=== PATIENT | female | born 1940 | race Two or more races ===

== ENCOUNTER 2018-09-27 20:20 | Inpatient (IN) | payer MEDICARE, MEDICAID ==
[~2018-09-27] VITALS: Ht 160 cm; Wt 59.0 kg
[2018-09-27] MEDS ORDERED: FAMOTIDINE20 MG ORAL (20:23)
[2018-09-27] MEDS ORDERED: KEPPRA LIQ100 MG/1 M ORAL (20:23)
[2018-09-27] MEDS ORDERED: DULCOLAX10 MG RC (20:23)
[2018-09-27] MEDS ORDERED: MULTIVITAMINS1 EA14 PO (20:23)
[2018-09-27] MEDS ORDERED: MILK OF MA400 MG/51 ORAL (20:23)
[2018-09-27] MEDS ORDERED: POTASSIUM20 MEQ/15 GT (20:23)
[2018-09-27 20:27] VITALS: BP 129/80
--- NOTE | 2018-09-27 21:19 | Emergency Room Report ---
History of Present Illness General Chief Complaint: Malfunctioning Gastric Tube Source: Patient, EMS, PMD Present Illness HPI Patient comes in with allegedly leaking gastrostomy tube. She states she wants this removed as she's taking in adequate calories by mouth. She denies any chest pain nausea vomiting diarrhea dysuria rashes weakness dizziness depression. According to Dr. Holloway she is confused and not an accurate historian. He states that she suffers from dysphagia and is unable to swallow. She needs to have L mentation by the gastrostomy tube or else she gets dehydrated. Also she cannot swallow pills. Allergies: Coded Allergies: LATEX (Verified Allergy, Unknown, 09/27/18) PENICILLINS (Verified Allergy, Unknown, 09/27/18) Patient History Past Medical History: see triage record Social History: Denies: smoking, alcohol use, drug use Social History Narrative SNF Last Menstrual Period: n/a Reviewed Nursing Documentation: PMH: Agreed; PSxH: Agreed Nursing Documentation-PMH Hx Gastrointestinal Problems: Yes - dysphagia Physical Exam Vital Signs Date Time Temp Pulse Resp B/P (MAP) Pulse Ox O2 Delivery O2 Flow Rate FiO2 09/27/18 20:16 98.1 77 20 123/85 93 09/27/18 20:27 Room Air Sp02 EP Interpretation: reviewed, normal General Appearance: no apparent distress, alert, GCS 15, Chronically Ill Head: normocephalic, atraumatic Eyes: bilateral eye normal inspection, bilateral eye PERRL ENT: hearing grossly normal, normal voice, moist mucus membranes Neck: full range of motion, supple Respiratory: no respiratory distress, speaking full sentences Gastrointestinal: soft, other - gastrostomy tube with tape Genitourinary: no CVA tenderness Neurologic: alert, oriented - X2 Psychiatric: mood/affect normal Skin: no rash Medical Decision Making Diagnostic Impression: Primary Impression: Malfunction of percutaneous endoscopic gastrostomy (PEG) tube Additional Impressions: Dehydration Dysphagia Qualified Codes: R13.10 - Dysphagia, unspecified ER Course Patient with a leaking gastrostomy tube. Initially we were considering changing this out. In assessing the tubes it appears to be a PEG tube instead of a gastrostomy tube that can't be replaced by deflating balloon. Will need GI to perform. The patient clinically is stable. This needs to be performed by his leather flesher and via endoscopy. In addition the patient is requesting that the tube be removed completely and states that she feels it's not necessary at this time. According to PMD, patient with confabulation and dysphagia - unable to swallow on own - anything. After discussion with her doctor plan is to admit the patient to the hospital to have this PEG tube replaced. In the interim she needs to have IV hydration. Evaluation will be with EKG, chest x-ray, abdominal film and labs. EKG without injury. Labs with normal CBC. CMP - elevated BUN compared to creat. Admit med Dr. Griffiths. Laboratory Tests Test 09/27/18 22:00 White Blood Count 6.6 K/UL (4.8-10.8) Red Blood Count 4.20 M/UL (4.20-5.40) Hemoglobin 12.8 G/DL (12.0-16.0) Hematocrit 38.6 % (37.0-47.0) Mean Corpuscular Volume 92 FL (80-99) Mean Corpuscular Hemoglobin 30.5 PG (27.0-31.0) Mean Corpuscular Hemoglobin Concent 33.2 G/DL (32.0-36.0) Red Cell Distribution Width 12.4 % (11.6-14.8) Platelet Count 285 K/UL (150-450) Mean Platelet Volume 7.0 FL (6.5-10.1) Neutrophils (%) (Auto) 60.7 % (45.0-75.0) Lymphocytes (%) (Auto) 19.4 % (20.0-45.0) L Monocytes (%) (Auto) 11.9 % (1.0-10.0) H Eosinophils (%) (Auto) 5.7 % (0.0-3.0) H Basophils (%) (Auto) 2.3 % (0.0-2.0) H Prothrombin Time 10.2 SEC (9.30-11.50) Prothrombin Time INR 1.0 (0.9-1.1) PTT 25 SEC (23-33) Urine Color Pale yellow Urine Appearance Clear Urine pH 8 (4.5-8.0) Urine Specific [place] 1.010 (1.005-1.035) Urine Protein Negative (NEGATIVE) Urine Glucose (UA) Negative (NEGATIVE) Urine Ketones Negative (NEGATIVE) Urine Blood Negative (NEGATIVE) Urine Nitrite Positive (NEGATIVE) H Urine Bilirubin Negative (NEGATIVE) Urine Urobilinogen Normal MG/DL (0.0-1.0) Urine Leukocyte Esterase Negative (NEGATIVE) Urine RBC 0 /HPF (0 - 2) Urine WBC 0-2 /HPF (0 - 2) Urine Squamous Epithelial Cells Few /LPF (NONE/OCC) Urine Bacteria Occasional /HPF (NONE) Sodium Level 139 MMOL/L (136-145) Potassium Level 4.6 MMOL/L (3.5-5.1) Chloride Level 105 MMOL/L (98-107) Carbon Dioxide Level 27 MMOL/L (21-32) Anion Gap 7 mmol/L (5-15) Blood Urea Nitrogen 18 mg/dL (7-18) Creatinine 0.5 MG/DL (0.55-1.30) L Estimate Glomerular Filtration Rate mL/min (>60) Glucose Level 92 MG/DL (74-106) Calcium Level 9.1 MG/DL (8.5-10.1) Total Bilirubin 0.2 MG/DL (0.2-1.0) Aspartate Amino Transferase (AST) 21 U/L (15-37) Alanine Aminotransferase (ALT) 24 U/L (12-78) Alkaline Phosphatase 86 U/L (46-116) Troponin I 0.000 ng/mL (0.000-0.056) Total Protein 8.5 G/DL (6.4-8.2) H Albumin 3.6 G/DL (3.4-5.0) Globulin 4.9 g/dL Albumin/Globulin Ratio 0.7 (1.0-2.7) L Lipase 94 U/L (73-393) EKG Diagnostic Results Rate: normal Rhythm: NSR ST Segments: no acute changes Rhythm Strip Diag. Results EP Interpretation: yes Rhythm: NSR, no PVC's, no ectopy Chest X-Ray Diagnostic Results Chest X-Ray Diagnostic Results : Chest X-Ray Ordered: Yes # of Views/Limited/Complete: 1 View Indication: Other EP Interpretation: Yes Interpretation: no consolidation, no effusion, no pneumothorax Impression: No acute disease Electronically Signed by: Lele Peres MD Other X-Ray Diagnostic Results Other X-Ray Diagnostic Results : X-Ray ordered: abd # of Views/Limited Vs Complete: 1 View Indication: Other EP Interpretation: Yes Interpretation: nonspecific bowel gas, no sbo, other - G tube Impression: Other Electronically Signed by: Lele Peres MD Last Vital Signs Date Time Temp Pulse Resp B/P (MAP) Pulse Ox O2 Delivery O2 Flow Rate FiO2 09/28/18 00:00 97.3 73 18 130/79 (96) 94 09/27/18 23:59 Room Air Status: improved Disposition: ADMITTED INPATIENT Condition: Serious Lele Peres MD Sep 27, 2018 21:19
[2018-09-27] MEDS ORDERED: Sodium Chloride 500ML 550 ML IV SCH (21:45)
[2018-09-27 22:23] LABS: BASOPHILS % (AUTO) 2.3 % (0.0-2.0); EOSINOPHILS % (AUTO) 5.7 % (0.0-3.0); HEMATOCRIT 38.6 % (37.0-47.0); HEMOGLOBIN 12.8 G/DL (12.0-16.0); LYMPHOCYTES % (AUTO) 19.4 % (20.0-45.0); MEAN CORPUSCULAR VOLUME 92 FL (80-99); MONOCYTES % (AUTO) 11.9 % (1.0-10.0); NEUTROPHILS % (AUTO) 60.7 % (45.0-75.0); PLATELET COUNT 285 K/UL (150-450); RED CELL DISTRIBUTION WIDTH 12.4 % (11.6-14.8); WHITE BLOOD COUNT 6.6 K/UL (4.8-10.8)
[2018-09-27 22:32] LABS: ANION GAP 7 mmol/L (5-15); BLOOD UREA NITROGEN 18 mg/dL (7-18); CALCIUM 9.1 MG/DL (8.5-10.1); CARBON DIOXIDE 27 MMOL/L (21-32); CHLORIDE 105 MMOL/L (98-107); CREATININE 0.5 MG/DL (0.55-1.30); POTASSIUM 4.6 MMOL/L (3.5-5.1); SODIUM 139 MMOL/L (136-145)
[2018-09-27 22:35] LABS: APPEARANCE,URINE CLEAR; BILIRUBIN, URINE NEGATIVE (NEGATIVE); COLOR,URINE PALE YELLOW; GLUCOSE, URINE (UA) NEGATIVE (NEGATIVE); KETONES,URINE NEGATIVE (NEGATIVE); LEUKOCYTE ESTERASE ,URINE NEGATIVE (NEGATIVE); NITRITE,URINE POSITIVE (NEGATIVE); PH,URINE 8 (4.5-8.0); PROTEIN,URINE NEGATIVE (NEGATIVE); UROBILINOGEN,URINE NORMAL MG/DL (0.0-1.0)
[2018-09-27 22:36] LABS: ALANINE AMINOTRANSFERASE 24 U/L (12-78); ALBUMIN 3.6 G/DL (3.4-5.0); ALBUMIN/GLOBULIN RATIO 0.7 (1.0-2.7); ALKALINE PHOSPHATASE 86 U/L (46-116); ASPARTATE AMINO TRANSFERASE 21 U/L (15-37); BILIRUBIN,TOTAL 0.2 MG/DL (0.2-1.0)
[2018-09-27 23:10] VITALS: BP 124/77
[2018-09-27] MEDS ORDERED: SODIUM CHLORIDE IV SCH (23:14)
[2018-09-28] VITALS: BP 130/79
[2018-09-28] MEDS ORDERED: D5 1/2NS w/KCl 20mEq 1,000 ML IV SCH (00:15)
[2018-09-28 04:00] VITALS: BP 114/72
[2018-09-28 06:34] LABS: BASOPHILS % (AUTO) 1.8 % (0.0-2.0); EOSINOPHILS % (AUTO) 5.8 % (0.0-3.0); HEMATOCRIT 36.2 % (37.0-47.0); HEMOGLOBIN 12.3 G/DL (12.0-16.0); LYMPHOCYTES % (AUTO) 16.8 % (20.0-45.0); MEAN CORPUSCULAR VOLUME 91 FL (80-99); MONOCYTES % (AUTO) 9.7 % (1.0-10.0); NEUTROPHILS % (AUTO) 65.9 % (45.0-75.0); PLATELET COUNT 277 K/UL (150-450); RED BLOOD COUNT 3.97 M/UL (4.20-5.40); RED CELL DISTRIBUTION WIDTH 12.1 % (11.6-14.8); WHITE BLOOD COUNT 5.8 K/UL (4.8-10.8)
[2018-09-28 06:55] LABS: ANION GAP 6 mmol/L (5-15); BLOOD UREA NITROGEN 12 mg/dL (7-18); CALCIUM 8.7 MG/DL (8.5-10.1); CARBON DIOXIDE 26 MMOL/L (21-32); CHLORIDE 107 MMOL/L (98-107); CREATININE 0.4 MG/DL (0.55-1.30); POTASSIUM 4.1 MMOL/L (3.5-5.1); SODIUM 139 MMOL/L (136-145)
[2018-09-28 08:00] VITALS: BP 119/80
[2018-09-28] MEDS ORDERED: levETIRAcetam 1,000mg/NS100ml 100 ML IVPB SCH (09:00)
[2018-09-28] MEDS: Heparin 5000 units/ml inj SUBQ SCH ×2 (09:00→21:02)
--- NOTE | 2018-09-28 10:46 | Diagnostic Imaging Report ---
Indication: Abdominal pain Comparison: None Single view of the abdomen obtained Findings: Bowel gas pattern is nonspecific. No mass, ectopic calcifications, or abnormal gas collections are identified. The bones are unremarkable. Catheter tubing projected over the mid abdomen appears to be a gastrostomy. Impression: No acute findings
--- NOTE | 2018-09-28 10:46 | Diagnostic Imaging Report ---
Indication: Chest pain Comparison: None A single view chest radiograph was obtained. Findings: No definite infiltrate or pulmonary vascular congestion identified. The heart is enlarged. The aorta is mildly enlarged consistent with atherosclerotic vascular disease. The bones are osteopenic. Impression: No acute disease
--- NOTE | 2018-09-28 10:54 | GI Initial Consult Note ---
History of Present Illness General Date patient seen: Sep 28, 2018 Time patient seen: 12:06 Reason for Hospitalization: Malfunctioning Gastric Tube Referring physician: ANSHU TOTH Reason for Consultation: GT MALFUNCTION Present Illness HPI Patient comes in with allegedly leaking gastrostomy tube. She states she wants this removed as she's taking in adequate calories by mouth. She denies any chest pain nausea vomiting diarrhea dysuria rashes weakness dizziness depression. According to Dr. Toth she is confused and not an accurate historian. He states that she suffers from dysphagia and is unable to swallow. She needs to have L mentation by the gastrostomy tube or else she gets dehydrated. Also she cannot swallow pills. GI consulted for GT malfunction. Pt seen, awake A&Ox3, noted as a poor historian presents today with c/o of GT malfunction. No active s/sx of N/V/D. The patient states she had the tube in for approximately 2 years. Denies any abdominal pain, N/V/D or constipation. States she is on a regular diet back home. The GT itself is in poor condition and wrapped with tape to prevent leakage. Unknown history of endoscopy / colonoscopy. Home Meds Reported Medications Levetiracetam (Keppra) 100 Mg/1 Ml Solution, 5 ML ORAL TWICE A DAY, #300 ML 0 Refills 09/27/18 Bisacodyl (DULCOLAX) 10 Mg Supp.rect, 10 MG RC, SUPP 09/27/18 Magnesium Hydroxide* (MILK OF MAGNESIA*) 400 Mg/5 Ml Oral.susp, 30 ML ORAL DAILY , ML 09/27/18 Multivitamin (Multivitamins) 1 Each Tablet, 1 EACH PO, TAB 09/27/18 Potassium Chloride (Potassium Chloride) 20 Meq/15 Ml Liquid, 20 MEQ GT, ML 09/27/18 Famotidine (FAMOTIDINE) 20 Mg Tablet, 20 MG ORAL DAILY, #30 TAB 0 Refills 09/27/18 Med list reviewed/reconciled: Yes Allergies: Coded Allergies: LATEX (Verified Allergy, Unknown, 09/27/18) PENICILLINS (Verified Allergy, Unknown, 09/27/18) Patient History Limited by: medical condition History Provided By: Medical Record PMH Narrative Past Medical History: see triage record Social History: Denies: smoking, alcohol use, drug use Social History Narrative SNF Last Menstrual Period: n/a Reviewed Nursing Documentation: PMH: Agreed; PSxH: Agreed Nursing Documentation-PMH Hx Gastrointestinal Problems: Yes - dysphagia Social History: Denies: smoking, alcohol use, drug use, other Review of Systems All Other Systems: negative except mentioned in HPI Physical Exam Vital Signs Date Time Temp Pulse Resp B/P (MAP) Pulse Ox O2 Delivery O2 Flow Rate FiO2 09/27/18 20:16 98.1 77 20 123/85 93 09/27/18 20:27 Room Air Sp02 EP Interpretation: reviewed, normal Labs Laboratory Tests Test 09/27/18 22:00 09/28/18 06:00 White Blood Count 6.6 K/UL (4.8-10.8) 5.8 K/UL (4.8-10.8) Red Blood Count 4.20 M/UL (4.20-5.40) 3.97 M/UL (4.20-5.40) L Hemoglobin 12.8 G/DL (12.0-16.0) 12.3 G/DL (12.0-16.0) Hematocrit 38.6 % (37.0-47.0) 36.2 % (37.0-47.0) L Mean Corpuscular Volume 92 FL (80-99) 91 FL (80-99) Mean Corpuscular Hemoglobin 30.5 PG (27.0-31.0) 31.1 PG (27.0-31.0) H Mean Corpuscular Hemoglobin Concent 33.2 G/DL (32.0-36.0) 34.1 G/DL (32.0-36.0) Red Cell Distribution Width 12.4 % (11.6-14.8) 12.1 % (11.6-14.8) Platelet Count 285 K/UL (150-450) 277 K/UL (150-450) Mean Platelet Volume 7.0 FL (6.5-10.1) 6.4 FL (6.5-10.1) L Neutrophils (%) (Auto) 60.7 % (45.0-75.0) 65.9 % (45.0-75.0) Lymphocytes (%) (Auto) 19.4 % (20.0-45.0) L 16.8 % (20.0-45.0) L Monocytes (%) (Auto) 11.9 % (1.0-10.0) H 9.7 % (1.0-10.0) Eosinophils (%) (Auto) 5.7 % (0.0-3.0) H 5.8 % (0.0-3.0) H Basophils (%) (Auto) 2.3 % (0.0-2.0) H 1.8 % (0.0-2.0) Prothrombin Time 10.2 SEC (9.30-11.50) Prothromb Time International Ratio 1.0 (0.9-1.1) Activated Partial Thromboplast Time 25 SEC (23-33) Urine Color Pale yellow Urine Appearance Clear Urine pH 8 (4.5-8.0) Urine Specific [place] 1.010 (1.005-1.035) Urine Protein Negative (NEGATIVE) Urine Glucose (UA) Negative (NEGATIVE) Urine Ketones Negative (NEGATIVE) Urine Blood Negative (NEGATIVE) Urine Nitrite Positive (NEGATIVE) H Urine Bilirubin Negative (NEGATIVE) Urine Urobilinogen Normal MG/DL (0.0-1.0) Urine Leukocyte Esterase Negative (NEGATIVE) Urine RBC 0 /HPF (0 - 2) Urine WBC 0-2 /HPF (0 - 2) Urine Squamous Epithelial Cells Few /LPF (NONE/OCC) Urine Bacteria Occasional /HPF (NONE) Sodium Level 139 MMOL/L (136-145) 139 MMOL/L (136-145) Potassium Level 4.6 MMOL/L (3.5-5.1) 4.1 MMOL/L (3.5-5.1) Chloride Level 105 MMOL/L (98-107) 107 MMOL/L (98-107) Carbon Dioxide Level 27 MMOL/L (21-32) 26 MMOL/L (21-32) Anion Gap 7 mmol/L (5-15) 6 mmol/L (5-15) Blood Urea Nitrogen 18 mg/dL (7-18) 12 mg/dL (7-18) Creatinine 0.5 MG/DL (0.55-1.30) L 0.4 MG/DL (0.55-1.30) L Estimat Glomerular Filtration Rate mL/min (>60) mL/min (>60) Glucose Level 92 MG/DL (74-106) 94 MG/DL (74-106) Calcium Level 9.1 MG/DL (8.5-10.1) 8.7 MG/DL (8.5-10.1) Total Bilirubin 0.2 MG/DL (0.2-1.0) Aspartate Amino Transf (AST/SGOT) 21 U/L (15-37) Alanine Aminotransferase (ALT/SGPT) 24 U/L (12-78) Alkaline Phosphatase 86 U/L (46-116) Troponin I 0.000 ng/mL (0.000-0.056) Total Protein 8.5 G/DL (6.4-8.2) H Albumin 3.6 G/DL (3.4-5.0) Globulin 4.9 g/dL Albumin/Globulin Ratio 0.7 (1.0-2.7) L Lipase 94 U/L (73-393) General Appearance: well appearing, no apparent distress, alert, thin Head: normocephalic EENT: PERRL/EOMI, normal ENT inspection Neck: supple Respiratory: normal breath sounds, no respiratory distress Cardiovascular: normal rate Gastrointestinal: normal inspection, non tender, soft, normal bowel sounds, non -distended Rectal: deferred Genitourinary: no CVA tenderness Musculoskeletal: normal inspection, back normal Neurologic: normal inspection, alert, oriented x3, responsive Psychiatric: normal inspection, judgement/insight normal, memory normal Skin: normal inspection, normal color, no rash, warm/dry, palpation normal, well hydrated Lymphatic: normal inspection, no adenopathy Current Medications Current Medications Medications (Trade) Dose Ordered Sig/Roger Route PRN Reason Start Time Stop Time Status Last Admin Dose Admin Dextrose/ Electrolytes 1,000 ml @ 50 mls/hr Q20H IV 09/28/18 00:15 10/28/18 00:14 09/28/18 00:53 Heparin Sodium (Porcine) (Heparin 5000 units/ml) 5,000 units EVERY 12 HOURS SUBQ 09/28/18 09:00 10/28/18 08:59 Levetiracetam 100 ml @ 400 mls/hr Q12HR IVPB 09/28/18 09:00 10/28/18 08:59 09/28/18 10:25 GI: Plan Problems: (1) Dysphagia (2) Malfunction of percutaneous endoscopic gastrostomy (PEG) tube (3) Dehydration Plan GT 20 trinidadian changed at bedside, CXR for confirmation. ST evaluation ordered for oral gratification calorie count x48 hours when given diet GT site care daily/prn Discussed with Dr. Patton. Thank you for this patient referral, we will follow. The patient was seen and examined at bedside and all new and available data was reviewed in the patients chart. I agree with the above findings, impression and plan. (Patient seen earlier today. Signature stamp does not reflect patient encounter time.). - MD Nata MorinCopper Springs HospitalHood PICK UP TRUCK DRIVER Sep 28, 2018 10:54
[2018-09-28 12:00] VITALS: BP 136/79
--- NOTE | 2018-09-28 14:00 | Diagnostic Imaging Report ---
Indication: Gastrostomy check Comparison: None Single view of the abdomen obtained Findings: Contrast demonstrated in the stomach and first portion of the duodenum. Gastrostomy balloon situated in the lower midline abdomen projected over the antrum. IMPRESSION: Gastrostomy tip in the antrum of the stomach. No leak
[2018-09-28 16:00] VITALS: BP 121/88
--- NOTE | 2018-09-28 18:15 | History and Physical Report ---
DATE OF ADMISSION: 09/27/2018 CHIEF COMPLAINT: Leaking G-tube. HISTORY OF PRESENT ILLNESS: This is a 78-year-old female from [facility]. The patient has a gastrostomy tube for the last several years. She had recently swallow evaluation done to check the ability of the patient to sustain herself on a diet. The patient failed swallow evaluation. The G-tube has been leaking for the last week or so. The patient is admitted for replacement of her G-tube. PAST MEDICAL HISTORY: 1. Organic brain syndrome. 2. History of subdural hematoma. 3. Organic brain syndrome. 4. Dysphagia. 5. Seizure disorder. CURRENT MEDICATIONS: 1. Dulcolax. 2. Famotidine. 3. Keppra. 4. Milk of magnesia. 5. Multivitamin. 6. Potassium chloride. ALLERGIES: Latex and penicillins. SOCIAL HISTORY: The patient lives in a skilled nursing. REVIEW OF SYSTEMS: Unable to obtain due to her mental status. PHYSICAL EXAMINATION: GENERAL: This is an elderly oriental female, who is in no acute distress. VITAL SIGNS: Blood pressure 114/72, pulse 83 and regular, respirations 19, and temperature 97.2. HEENT: The head is normocephalic and atraumatic. Pupils are equal, round, and reactive to light and accommodation consensually. NECK: Supple. Trachea midline. There was no lymphadenopathy or thyromegaly. LUNGS: Clear to auscultation and percussion. HEART: Regular rate and rhythm without rubs, murmurs, or gallops. ABDOMEN: Soft and nontender. Bowel sounds were active. EXTREMITIES: No clubbing, cyanosis, or edema. NEUROLOGIC: She is alert, but confused. There were no gross focal findings. LABORATORY AND ANCILLARY DATA: CBC within normal limits. Chemistry within normal limits. Albumin level 3.6. ASSESSMENT: 1. Organic brain syndrome. 2. History of subdural hematoma. 3. Organic brain syndrome. 4. Dysphagia. 5. Seizure disorder. PLAN: 1. Dr. Patton for G-tube replacement. 2. Discharge back to skilled nursing following the successful replacement and in the meantime, keep the patient on IV fluids. Siva Griffiths M.D. DR: YAHIR JOB#: [id number] CC:
[2018-09-28 20:00] VITALS: BP 143/88
[2018-09-29] VITALS: BP 157/71
[2018-09-29 04:00] VITALS: BP 127/83
--- NOTE | 2018-09-29 08:04 | General Progress Note ---
Assessment/Plan Assessment/Plan Needs PEG replacement. Awaiting Dr. Patton to do today. If not done DC to SNF. Subjective Allergies: Coded Allergies: LATEX (Verified Allergy, Unknown, 09/27/18) PENICILLINS (Verified Allergy, Unknown, 09/27/18) Subjective Confused Objective Last 24 Hour Vital Signs Date Time Temp Pulse Resp B/P (MAP) Pulse Ox O2 Delivery O2 Flow Rate FiO2 09/29/18 04:00 97.2 86 18 127/83 (98) 93 09/29/18 00:00 97.8 75 18 157/71 (99) 93 09/28/18 20:34 Room Air 09/28/18 20:00 97.9 76 18 143/88 (106) 96 09/28/18 16:00 98.1 77 16 121/88 (99) 93 09/28/18 12:00 98.1 73 16 136/79 (98) 95 09/28/18 09:00 Room Air Intake and Output 09/28/18 09/29/18 19:00 07:00 Intake Total 540 ml 360 ml Balance 540 ml 360 ml Intake Oral 240 ml 360 ml IV Total 300 ml # Voids 3 2 Height (Feet): 5 Height (Inches): 3.00 Weight (Pounds): 130 Objective CV RRLungs CTA Abd SNT. BS + E No CCe Siva Griffiths MD Sep 29, 2018 08:04
--- NOTE | 2018-09-29 08:07 | General Progress Note ---
Assessment/Plan Assessment/Plan GT replaced. GUY Patton.. DC to SNF. Subjective Allergies: Coded Allergies: LATEX (Verified Allergy, Unknown, 09/27/18) PENICILLINS (Verified Allergy, Unknown, 09/27/18) Subjective Confused Objective Last 24 Hour Vital Signs Date Time Temp Pulse Resp B/P (MAP) Pulse Ox O2 Delivery O2 Flow Rate FiO2 09/29/18 04:00 97.2 86 18 127/83 (98) 93 09/29/18 00:00 97.8 75 18 157/71 (99) 93 09/28/18 20:34 Room Air 09/28/18 20:00 97.9 76 18 143/88 (106) 96 09/28/18 16:00 98.1 77 16 121/88 (99) 93 09/28/18 12:00 98.1 73 16 136/79 (98) 95 09/28/18 09:00 Room Air Intake and Output 09/28/18 09/29/18 19:00 07:00 Intake Total 540 ml 360 ml Balance 540 ml 360 ml Intake Oral 240 ml 360 ml IV Total 300 ml # Voids 3 2 Height (Feet): 5 Height (Inches): 3.00 Weight (Pounds): 130 Objective CV RRLungs CTA Abd SNT. BS + E No CCe Siva Griffiths MD Sep 29, 2018 08:07
[2018-09-29 08:46] VITALS: BP 112/77
[2018-09-29] MEDS: Heparin 5000 units/ml inj SUBQ SCH (08:48)
[2018-09-29 09:02] LABS: EOSINOPHILS % (AUTO) 1.1 % (0.0-3.0); HEMOGLOBIN 15.5 G/DL (12.0-16.0); LYMPHOCYTES % (AUTO) 10.3 % (20.0-45.0); MEAN CORPUSCULAR VOLUME 92 FL (80-99); MONOCYTES % (AUTO) 10.4 % (1.0-10.0); NEUTROPHILS % (AUTO) 76.2 % (45.0-75.0); PLATELET COUNT 277 K/UL (150-450); RED BLOOD COUNT 4.97 M/UL (4.20-5.40); WHITE BLOOD COUNT 6.2 K/UL (4.8-10.8)
[2018-09-29 09:25] LABS: ANION GAP 15 mmol/L (5-15); BLOOD UREA NITROGEN 21 mg/dL (7-18); CALCIUM 9.1 MG/DL (8.5-10.1); CARBON DIOXIDE 22 MMOL/L (21-32); CHLORIDE 101 MMOL/L (98-107); CREATININE 0.2 MG/DL (0.55-1.30); POTASSIUM 4.5 MMOL/L (3.5-5.1); SODIUM 137 MMOL/L (136-145)
[2018-09-29 12:00] VITALS: BP 115/59
--- NOTE | 2018-09-29 13:08 | GI Progress Note ---
Assessment/Plan Problems: (1) Malfunction of percutaneous endoscopic gastrostomy (PEG) tube ICD Codes: K94.23 - Gastrostomy malfunction SNOMED: 629996231 (2) Dehydration ICD Codes: E86.0 - Dehydration SNOMED: 66332745, 898332248 (3) Dysphagia ICD Codes: R13.10 - Dysphagia, unspecified SNOMED: 71010074, 125193646 Qualifiers: Qualified Codes: R13.10 - Dysphagia, unspecified Status: stable Status Narrative Discussed with Dr. Patton. Assessment/Plan GT [address] changed at bedside[address] evaluation noted calorie count x48 hours pending GT site care daily/prn dc per primary The patient was seen and examined at bedside and all new and available data was reviewed in the patients chart. I agree with the above findings, impression and plan. (Patient seen earlier today. Signature stamp does not reflect patient encounter time.). - Brad Patton MD Subjective Gastrointestinal/Abdominal: Reports: no symptoms Objective Last 24 Hour Vital Signs Date Time Temp Pulse Resp B/P (MAP) Pulse Ox O2 Delivery O2 Flow Rate FiO2 09/29/18 08:46 97.4 79 16 112/77 (89) 94 09/29/18 04:00 97.2 86 18 127/83 (98) 93 09/29/18 00:00 97.8 75 18 157/71 (99) 93 09/28/18 20:34 Room Air 09/28/18 20:00 97.9 76 18 143/88 (106) 96 09/28/18 16:00 98.1 77 16 121/88 (99) 93 Intake and Output 09/28/18 09/29/18 19:00 07:00 Intake Total 540 ml 360 ml Balance 540 ml 360 ml Intake Oral 240 ml 360 ml IV Total 300 ml # Voids 3 2 Laboratory Tests Test 09/29/18 08:14 White Blood Count 6.2 K/UL (4.8-10.8) Red Blood Count 4.97 M/UL (4.20-5.40) Hemoglobin 15.5 G/DL (12.0-16.0) Hematocrit 46.0 % (37.0-47.0) Mean Corpuscular Volume 92 FL (80-99) Mean Corpuscular Hemoglobin 31.1 PG (27.0-31.0) H Mean Corpuscular Hemoglobin Concent 33.6 G/DL (32.0-36.0) Red Cell Distribution Width 12.0 % (11.6-14.8) Platelet Count 277 K/UL (150-450) Mean Platelet Volume 6.9 FL (6.5-10.1) Neutrophils (%) (Auto) 76.2 % (45.0-75.0) H Lymphocytes (%) (Auto) 10.3 % (20.0-45.0) L Monocytes (%) (Auto) 10.4 % (1.0-10.0) H Eosinophils (%) (Auto) 1.1 % (0.0-3.0) Basophils (%) (Auto) 2.0 % (0.0-2.0) Sodium Level 137 MMOL/L (136-145) Potassium Level 4.5 MMOL/L (3.5-5.1) Chloride Level 101 MMOL/L (98-107) Carbon Dioxide Level 22 MMOL/L (21-32) Anion Gap 15 mmol/L (5-15) Blood Urea Nitrogen 21 mg/dL (7-18) H Creatinine 0.2 MG/DL (0.55-1.30) L Estimat Glomerular Filtration Rate mL/min (>60) Glucose Level 77 MG/DL (74-106) Calcium Level 9.1 MG/DL (8.5-10.1) Height (Feet): 5 Height (Inches): 3.00 Weight (Pounds): 130 General Appearance: WD/WN, no apparent distress, alert Cardiovascular: normal rate Respiratory/Chest: normal breath sounds, no respiratory distress Abdominal Exam: normal bowel sounds, non tender, soft, GT site - c/d/i Extremities: normal range of motion, non-tender Elizabeth Peace NP Sep 29, 2018 13:08
--- NOTE | 2018-09-30 10:00 | Discharge Summary ---
Discharge Summary Discharge Summary _ DATE OF ADMISSION: 09/27/2018 DATE OF DISCHARGE: 09/29/2018 REASON FOR ADMISSION: 78 years old female with past medical history of organic brain syndrome, history of subdural hematoma, dysphagia, seizure disorder, resident of the correction facility, presented for leaking G-tube. Patient failed recent swallow evaluation. Patient presented for replacement of G-tube. Upon evaluation vital signs were stable Laboratory workup revealed no leukocytosis , stable hemoglobin and hematocrit. Stable electrolytes and renal parameters. Troponin negative. Chest x-ray revealed no acute cardiopulmonary pathology. Abdominal x-ray revealed no acute findings. Patient admitted with diagnoses of malfunctioning G-tube/leaking; dehydration, dysphagia. CONSULTANTS: GI specialist Dr. Patton [facility] COURSE: Patient admitted to medical surgical floor. and started on the IV hydration. GI consult was requested for G-tube replacement. GI specialist seen and evaluated the patient. 20 Greek G-tube gastrostomy tube was changed at the bedside. X-ray confirmed placement. Bedside swallow evaluation was ordered to check for possible oral gratification.. Per speech therapist evaluation , patient had a grossly functional swallowing with thin liquids, pured teaspoon and soft masticated solids. Speech therapist recommended consider barium swallow study to further assess swallowing and determine silent aspiration risk and attempt trial treatment. If oral diet considering for quality of life , start diet as per speech therapist recommendation with strict aspiration/ reflux precautions and one-to- one feeding. G-tube site care provided daily . Patient started on G tube feeding and advance to goal rate as per auto specialty services manager recommendation with close monitoring of tolerance. Patient was able to tolerate tube feeding. Experimental Machinist recommended trail of oral gratification at the correction facility with 1 to 1 supervision and strict aspiration precautions, and calorie count to assess oral intake. Seizure precaution maintained. Keppra continued . No evidence of seizure activity while in the hospital. DVT prophylaxis provided. FINAL DIAGNOSES: Malfunctioning/leaking G-tube Dysphagia Status post G-tube replacement Seizure disorder Organic brain syndrome History of subdural hematoma DISCHARGE MEDICATIONS: See Medication Reconciliation list. DISCHARGE INSTRUCTIONS: Patient was discharged to the correction facility. Follow up with medical doctor at the facility. I have been assigned to dictate discharge summary for this account. I was not involved in the patient's management. Meagan Woods NP Sep 30, 2018 10:00
== END 2018-09-29 13:40 | DRG 395 ==
LOC: EDBD 20:20 → EMR 20:40 → EDBEDREQ 21:58 → 4E 22:39 → EDBEDREQ 23:10
PROC: 0D20XUZ Change Feeding Device in Upper Intestinal Tract, External Approach (ICD-10-PCS; principal; 2018-09-28)
DX: K94.23 Gastrostomy malfunction (principal); E86.0 Dehydration; Y83.3 Surgical operation with formation of external stoma as the cause of abnormal reaction of the patient, or of later complication, without mention of misadventure at the time of the procedure; R13.10 Dysphagia, unspecified; G40.909 Epilepsy, unspecified, not intractable, without status epilepticus; F09 Unspecified mental disorder due to known physiological condition; Z88.0 Allergy status to penicillin; Z91.040 Latex allergy status; I69.298 Other sequelae of other nontraumatic intracranial hemorrhage
CPT/HCPCS: 36415; 71045; 74018; 80048; 80053; 80299; 81003; 83690; 84484; 85025; 85610; 85730; 86850; 86900; 86901; 87081; 93005; 96360; 96361; 99285